=== PATIENT | male | born 2000 | race Caucasian/White ===

== ENCOUNTER 2019-02-12 20:19 | Emergency (ER) | payer BC ==
[~2019-02-12] VITALS: Ht 170.2 cm; Wt 59.1 kg
[2019-02-12 20:29] VITALS: BP 143/89
[2019-02-12] MEDS ORDERED: CefTRIAXone 250MG IM Kit w/LIDOcaine IM ONE (21:05)
[2019-02-12] MEDS ORDERED: azithromycin 250mg tablet PO ONE (21:05)
--- NOTE | 2019-02-12 21:30 | NUR ---
unable to scan ceftriaxone 250 mg with lidocane im was not scanning ,fito wells witness the med dose action route and frequency in front of pt.
== END 2019-02-12 21:35 | disposition home or self-care (01) ==
LOC: ER 20:20
DX: N45.1 Epididymitis (principal); Z88.0 Allergy status to penicillin; Z88.1 Allergy status to other antibiotic agents
CPT/HCPCS: 96372; 99283; J0696

== ENCOUNTER 2019-03-01 14:16 | Emergency (ER) | payer BC ==
[~2019-03-01] VITALS: Ht 170.2 cm; Wt 58.2 kg
--- NOTE | 2019-03-01 15:50 | NUR ---
relieving RN for lunch, pt is resting quietly on gurney, waiting to be evaluated by provider
--- NOTE | 2019-03-01 17:19 | NUR ---
Luis Antonio ortiz pt ordered to cancel labs. pt sitting up in bed no distress noted.
[2019-03-01 17:49] VITALS: BP 116/67
== END 2019-03-01 17:43 | disposition home or self-care (01) ==
LOC: ER 14:16
DX: R07.89 Other chest pain (principal); Z88.0 Allergy status to penicillin; Z88.1 Allergy status to other antibiotic agents
CPT/HCPCS: 71045; 93005; 99283